=== PATIENT | male | born 1980 | race Caucasian/White ===

== ENCOUNTER 2016-08-24 04:23 | Emergency (ER) | payer SELFPAY ==
[~2016-08-24] VITALS: Ht 172.7 cm; Wt 88.5 kg
[2016-08-24 04:32] VITALS: Ht 172.7 cm; Wt 88.5 kg
[2016-08-24] MEDS ORDERED: SOD CHLORIDE 0.9% 1,000 ML IV STA (06:10)
[2016-08-24] MEDS ORDERED: PANTOPRAZOLE 40 MG INJ IV STA (06:10)
--- NOTE | 2016-08-24 06:16 | ERD ---
ER Documentation Chief Complaint Date/Time DATE: 08/24/16 TIME: 06:05 Chief Complaint abd pain,vomited blood after drinking alcohol for a week. HPI 36-year-old male with history of chronic alcohol abuse with binge drinking over the last week but stopped 2 days ago ambulatory to the ED complaining of a 2 day history of burning, nonradiating, moderate, sharp epigastric pain with nausea and multiple episodes of blood-tinged vomitus. Denies hematochezia or melanotic stools. Generalized body aches and gradual onset headache but no visual changes, focal weakness or numbness. No head injury or syncope. Denies visual auditory hallucinations. No chest pain or palpitations. No shortness of breath or cough. No skin rash. Denies dysuria, polyuria, hematuria or flank pain. No relieving or exacerbating factors. No fevers or chills. ROS All systems reviewed and are negative except as per history of present illness. Allergies Allergies: Coded Allergies: No Known Allergy (Unverified , 08/24/16) PMhx/Soc Reviewed in chart. As per HPI. Medical and Surgical Hx: pt denies Medical Hx, pt denies Surgical Hx Hx Neurological Disorder: No Hx Respiratory Disorders: No Hx Cardiac Disorders: No Hx Psychiatric Problems: No Hx Miscellaneous Medical Probl: No Hx Alcohol Use: Yes (socially) Hx Substance Use: No Hx Tobacco Use: No Smoking Status: Never smoker FmHx Mother: Diabetes. Father: Hypertension Physical Exam Vitals Vital Signs Date Time Temp Pulse Resp B/P Pulse Ox O2 Delivery O2 Flow Rate FiO2 08/24/16 04:32 97.8 61 18 139/81 98 Physical Exam Const: Alert, anxious but in no acute distress. Head: Atraumatic Eyes: Normal Conjunctiva ENT: Normal External Ears, Nose and Mouth. Neck: Full range of motion.. Nontender. Resp: Breath sounds are equal and clear to auscultation bilaterally Cardio: Regular rate and rhythm, no murmurs Abd: Soft, mild epigastric tenderness, non distended. Normal bowel sounds. No rebound or guarding. No masses or abnormal pulsations. Rectal exam: Normal tone, nontender, no masses, brown stool. Skin: No petechiae or rashes Back: No midline or flank tenderness. Large nontender ecchymosis right flank patient states sustained after a fall 3 days ago. Ext: No cyanosis, or edema Neur: Awake and alert. Cranial nerves II through XII are grossly intact. No focal deficit observed. Psych: Appears anxious but not depressed. Cooperative. No visual auditory hallucinations. On direct questioning denies suicidal or homicidal ideations. Result Diagram: 08/24/1648 08/24/1648 Results 24 hrs Laboratory Tests Test 08/24/16 06:20 08/24/16 06:42 08/24/16 06:48 Stool Occult Blood NEGATIVE Bedside Urine Blood Trace-lysed Bedside Urine Glucose (UA) Negative Bedside Urine Ketones (LAB) Trace Bedside Urine Leukocyte Esterase (L Negative Bedside Urine Nitrite (LAB) Negative Bedside Urine Protein (LAB) 1+ Bedside Urine pH (LAB) 5.5 Activated Partial Thromboplast Time 25.8Sec Alanine Aminotransferase (ALT/SGPT) 78IU/L Albumin 4.3g/dl Albumin/Globulin Ratio 1.22 Alkaline Phosphatase 82IU/L Anion Gap 22 Aspartate Amino Transf (AST/SGOT) 66IU/L Basophils # 0.010^3/ul Basophils % 0.4% Blood Urea Nitrogen 15mg/dl Calcium Level 8.6mg/dl Carbon Dioxide Level 24mmol/L Chloride Level 102mmol/L Creatinine 0.62mg/dl Direct Bilirubin 0.00mg/dl Eosinophils # 0.010^3/ul Eosinophils % 0.0% Globulin 3.50g/dl Glucose Level 125mg/dl Hematocrit 50.0% Hemoglobin 17.6g/dl INR International Normalized Ratio 1.11 Indirect Bilirubin 0.7mg/dl Lipase 79U/L Lymphocytes # 1.810^3/ul Lymphocytes % 15.0% Mean Corpuscular Hemoglobin 31.7pg Mean Corpuscular Hemoglobin Concent 35.2g/dl Mean Corpuscular Volume 89.9fl Mean Platelet Volume 8.2fl Monocytes # 0.810^3/ul Monocytes % 6.6% Neutrophils # 9.210^3/ul Neutrophils % 78.0% Nucleated Red Blood Cells # 0.010^3/ul Nucleated Red Blood Cells % 0.0/100WBC Platelet Count 06779^3/UL Potassium Level 4.3mmol/L Prothrombin Time 14.3Sec Prothrombin Time Ratio 1.1 Red Blood Count 5.5610^6/ul Red Cell Distribution Width 12.9% Sodium Level 144mmol/L Total Bilirubin 0.7mg/dl Total Protein 7.8g/dl White Blood Count 11.810^3/ul Current Medications Medications (Trade) Dose Ordered Sig/Robert Route PRN Reason Start Time Stop Time Status Last Admin Dose Admin Sodium Chloride (NS) 1,000 ml @ 1,000 mls/hr Q1H STAT IV 08/24/16 06:10 08/24/16 07:09 08/24/16 07:05 Pantoprazole (Protonix Iv) 40 mg ONCE STAT IV 08/24/16 06:10 08/24/16 06:11 08/24/16 07:05 Thiamine HCl 100 mg 100 mg ONCE ONCE IV 08/24/16 06:30 08/24/16 06:31 Cancel Thiamine HCl/ Sodium Chloride (Vitamin B1/NS) 51 ml @ 100 mls/hr ONCE IV 08/24/16 07:30 08/24/16 07:31 08/24/16 07:34 Procedures/MDM DOCUMENTS REVIEWED: ED nurse, no prior records ED COURSE: Normal saline 1 L. Thiamine 100 mg IV. Protonix 40 mg IV. REEXAMINATION/REEVALUATION: Time: 07:45. Doing well. Abdomen soft nontender.Tolerating PO's. No anxiety. Not tremulous. MEDICAL DECISION MAKIN-year-old male with history of chronic alcohol abuse with binge drinking over the last week but stopped 2 days ago ambulatory to the ED complaining of a 2 day history of burning, nonradiating, moderate, sharp epigastric pain with nausea and multiple episodes of blood-tinged vomitus. Hemoglobin and hematocrit are normal and stool is negative for blood making it unlikely the patient actually did have hematemesis. Vital signs are normal. No evidence of alcohol withdrawal or delirium tremens. Epigastric pain likely secondary to acute gastritis/GERD although other etiologies such as peptic ulcer disease and cholelithiasis are considered. Lipase is normal there is no pancreatitis. Mild transaminitis likely secondary to alcoholic liver disease. Alcohol cessation counseling is provided. Stable for discharge with proton pump inhibitors, antiemetics and referral to Alcoholics Anonymous. Counseled patient regarding diagnostic workup, diagnosis and need for followup. Understands to return to ED if symptoms recur, worsen or any other concerns. Departure Diagnosis: Primary Impression: Abdominal pain, acute, epigastric Additional Impressions: Acute gastritis Gastritis type: alcoholic Gastritis bleeding: without bleeding Qualified Code: K29.20 - Acute alcoholic gastritis without hemorrhage Alcohol abuse Condition: Stable Patient Instructions: Alcohol Abuse, Alcohol Addiction, Gastritis (Adult) GRACY HERRERA MD Aug 24, 2016 06:16
[2016-08-24] MEDS ORDERED: THIAMINE 200 MG INJ IV ONE (06:30)
[2016-08-24 06:41] LABS: URINE BLOOD (Dip) POC Trace-lysed (NEGATIVE)
[2016-08-24 07:03] LABS: BASOPHILS % 0.4 % (0.0-2.0); HEMOGLOBIN 17.6 g/dl (14.0-18.0); LYMPHOCYTES # 1.8 10^3/ul (0.8-2.9); MEAN CORPUSCULAR HEMOGLOBIN 31.7 pg (29.0-33.0); MEAN CORPUSCULAR HGB CONC 35.2 g/dl (32.0-37.0); MEAN CORPUSCULAR VOLUME 89.9 fl (82.0-101.0); MEAN PLATELET VOLUME 8.2 fl (7.4-10.4); MONOCYTE # 0.8 10^3/ul (0.3-0.9); MONOCYTES % 6.6 % (0.0-11.0); NEUTROPHIL # 9.2 10^3/ul (1.6-7.5); PLATELET COUNT 250 10^3/UL (140-440); RED BLOOD COUNT 5.56 10^6/ul (4.70-6.10); RED CELL DISTRIBUTION WIDTH 12.9 % (11.5-14.5); UNCORRECTED WBC 11.8 10^3/ul (4.8-10.8); WHITE BLOOD COUNT 11.8 10^3/ul (4.8-10.8)
[2016-08-24 07:12] LABS: CONDITION 1
[2016-08-24 07:15] LABS: ALBUMIN 4.3 g/dl (3.3-4.9); INR 1.11; PARTIAL THROMBOPLASTIN TIME 25.8 Sec (25.0-35.0); PROTIME 14.3 Sec (12.2-14.2); PT RATIO 1.1
[2016-08-24 07:16] LABS: POTASSIUM 4.3 mmol/L (3.5-5.1)
[2016-08-24 07:18] LABS: ALBUMIN/GLOBULIN RATIO 1.22; BILIRUBIN,INDIRECT 0.7 mg/dl (0-1.1); BILIRUBIN,TOTAL 0.7 mg/dl (0.2-1.3); CREATININE 0.62 mg/dl (0.61-1.24); TOTAL PROTEIN 7.8 g/dl (6.1-8.1)
[2016-08-24 07:19] LABS: CALCIUM 8.6 mg/dl (8.4-10.2)
[2016-08-24] MEDS ORDERED: THIAMINE IV SCH (07:30)
[2016-08-24] MEDS ORDERED: SOD CHLORIDE 0.9% IV SCH (07:30)
[2016-08-24] MEDS ORDERED: ONDA4TAB14 PO (07:59)
[2016-08-24] MEDS ORDERED: PANT40TA3 PO (07:59)
[2016-08-24 08:50] VITALS: BP 125/83; PULSE 68; RESP 18; TEMP 98
== END 2016-08-24 09:07 | disposition home or self-care (01) ==
LOC: E/R 04:23
DX: R10.13 Epigastric pain (principal); K29.20 Alcoholic gastritis without bleeding; F10.129 Alcohol abuse with intoxication, unspecified; R11.2 Nausea with vomiting, unspecified
CPT/HCPCS: 36415; 80053; 81003; 82270; 83690; 85025; 85610; 85730; 86850; 86900; 86901; 96374; 96375; 99284; C9113; J3411; J7030